=== PATIENT | male | born 1960 | race Caucasian/White ===

== ENCOUNTER 2016-08-09 22:14 | Emergency (ER) | payer OTHER ==
[~2016-08-09] VITALS: Ht 175.3 cm; Wt 70.8 kg
[~2016-08-09 22:14] MED LIST: CARDIZEM CD180 M1 PO; CITALOPRAM HBR40 MG PO; CYCLOBENZAPRINE10 M1 PO; DILTIAZEM 24HR120 MG PO; ELIQUIS5 M1 PO; KEFLEX500 MG PO; LATUDA40 M1 PO; PERCOCET 5-3251 EACH PO; PRAVACHOL40 M1 PO; TYLENOL #31 TAB PO; TYLENOL325 M1 PO; ULTRAM50 M1 PO; VALIUM2 M1 PO
[2016-08-09 22:17] VITALS: BP 128/92
[2016-08-09] MEDS ORDERED: DELTASONE20 MG PO (23:02)
[2016-08-09] MEDS ORDERED: PERCOCET 5-3251 EACH PO (23:02)
--- NOTE | 2016-08-09 23:02 | ED NECK/BACK PAIN COMPLAINT ---
History of Present Illness General Chief Complaint: Low Back Pain/Injury Stated Complaint: " LOEWER BACK PAIN" Source: patient Exam Limitations: no limitations Vital Signs & Intake/Output Vital Signs & Intake/Output Vital Signs Date Time Temp Pulse Resp B/P Pulse O2 O2 Flow FiO2 Ox Delivery Rate 08/09 2216 99.0 85 20 128/92 97 Room Air Allergies Coded Allergies: ibuprofen (CAN'T ANTONIETA R/T BLOOD THINNERS 08/09/16) Reconcile Medications Acetaminophen (Tylenol) 325 MG TABLET 2 TAB PO BID PRN PAIN (Reported) Apixaban (Eliquis) 5 MG TABLET 1 TAB PO BID BLOOD THINNER (Reported) Citalopram Hydrobromide (Citalopram HBr) 40 MG TABLET 1 TAB PO DAILY DEPRESSION (Reported) Cyclobenzaprine HCl 10 MG TABLET 1 TAB PO TID PRN MUSCLE SPASM Cyclobenzaprine HCl 10 MG TABLET 1 TAB PO TID PRN muscle spasm Diltiazem HCl (Cardizem Cd) 180 MG CAP.ER.24H 1 CAP PO DAILY ATRIAL FIBRILLATION Lurasidone HCl (Latuda) 40 MG TABLET 1 TAB PO DAILY MENTAL HEALTH (Reported) Oxycodone HCl/Acetaminophen (Percocet 5-325 MG Tablet) 5 MG-325 MG TABLET 1-2 TAB PO Q6P PRN pain Oxycodone HCl/Acetaminophen (Percocet 5-325 MG Tablet) 1 EACH TABLET 1 TAB PO Q4-6 PRN PAIN Pravastatin Sodium (Pravachol) 40 MG TABLET 1 TAB PO QHS CHOLESTEROL ( Reported) Prednisone (Deltasone) 20 MG TABLET 1 TAB PO BID BACK PAIN Tramadol HCl (Ultram) 50 MG TABLET 1-2 TAB PO TID PRN pain thirty...[id number] Tramadol HCl (Ultram) 50 MG TABLET 1-2 TAB PO TID PRN pain thirty...[id number] Triage Note: TRIAGE: PT TO ER WITH C/C MID/LOW BACK PAIN WHICH IS CHRONIC X YEARS BUT IS WORSE TODAY AFTER CARRYING GROCERIES IN. ALSO STATES HE HAS BEEN HAVING INCONTINENCE OF URINE AND STOOL X COUPLE WEEKS WHICH HE WAS SEEN AT [facility] LAST WEEK. WAS ADVISED TO "GO TO THE EMERGENCY ROOM IF THERE WAS ANY ISSUE". TOOK TYLENOL FOR PAIN TODAY WITH NO RELIEF. Triage Nurses Notes Reviewed? yes Onset: Abrupt Duration: acute on chronic Location: lumbar spine Radiation: upper legs Loss of Consciousness: no loss of consciousness HPI: 56-year-old male comes into emergency room for further evaluation of low back pain. Patient has had chronic low back pain issues for many years. Patient has degenerative disc disease with multiple herniated disks. Patient reports that tonight while lifting the groceries he felt a pop in his lower back. Patient reports she has pain that radiates to his hips bilaterally. Denies any weakness in the lower legs. Sharp. [facility] Patient saw a neurosurgeon who said that he would not operate on him due to the fact he is on blood thinners. (JUAN PABLO ENGLE) Past History Travel History Traveled to [place] past 21 day No Medical History Any Pertinent Medical History? 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 No (JUAN PABLO ENGLE) Review of Systems Review of Systems Constitutional: Reports: no symptoms. Eyes: Reports: no symptoms. Ears, Nose, Throat, Mouth: Reports: no symptoms. Respiratory: Reports: no symptoms. Cardiovascular: Reports: no symptoms. Gastrointestinal/Abdominal: Reports: no symptoms. Musculoskeletal: Reports: see HPI. Skin: Reports: no symptoms. Neurological/Psychological: Reports: no symptoms. All Other Systems: Reviewed and Negative (JUAN PABLO ENGLE) Physical Exam Physical Exam General Appearance: well developed/nourished Head: atraumatic Eyes: Bilateral: normal appearance. Ears, Nose, Throat, Mouth: hearing grossly normal, moist mucous membrane Neck: normal inspection Respiratory: no respiratory distress Cardiovascular: regular rate/rhythm Back: normal inspection Extremities: normal range of motion, laceration left ring finger Motor: Deficit L4 Right: No Deficit L4 Left: No Deficit L5 Right: No Deficit L5 Left: No Deficit S1 Right: No Deficit S1 Right: No Neurologic/Psych: awake, alert, oriented x 3, normal mood/affect Skin: intact, normal color, warm/dry (JUAN PABLO ENGLE) Progress Differential Diagnosis: C spine injury, carotid dissection, cauda equina syn, herniated disc, myofascial strain, sciatica, spinal cord inj, thoracic outlet syn, T/L spine injury, ureterolithiasis Plan of Care: Current Medications Sig/Sly Start time Last Medication Dose Stop Time Status Admin Oxycodone/ 2 TAB ONCE ONE 08/09 2299 UNVr Acetaminophen 08/09 2300 (Percocet) Comments: 08/09/2016 11:14:05 PM Patient clinically looks well. This is a chronic issue for the patient. Patient has no motor deficits. Patient needs follow-up with neurosurgery and another consult from neurosurgery from a different one. Consider pain management. Consider repeat MRI of back. Do not feel x-ray would be helpful in diagnosis at this time. (JUAN PABLO ENGLE) Departure Departure Disposition: HOME OR SELF CARE Condition: Stable Clinical Impression Primary Impression: Acute exacerbation of chronic low back pain Secondary Impressions: Degenerative disc disease Referrals: ML PAINTER,LONA GASPAR (PCP/Family) HEATHER PAINTER,ROC HAYES MD,YENNIFER Pereyra Additional Instructions: Take prednisone and Percocet as prescribed. Follow-up with neurosurgeon as well as pain clinic. Return if any other concerns worsening symptoms. Please go over all results of today's visit with your primary care doctor. Contact your primary care doctor to let them know you were here in the emergency room. There may be nonspecific findings which may not be related to your visit today here in the emergency room but may require further evaluation and chronic monitoring by your primary care doctor. If you had a laceration today the chance of foreign body always remains. You should follow-up with your primary care doctor for recheck in 3-5 days for a wound check. If you had an x-ray done there is a chance that a fracture could have been missed on initial read and you should follow-up with your primary care doctor for repeat x-rays if symptoms persist. If your blood pressure was elevated here in the emergency room please have rechecked by her primary care doctor within the next 48 hours by your primary care doctor. If you were prescribed a narcotic here in the emergency room or any type of controlled substances you're not allowed to drive while taking this medication or operate any type of heavy machinery. Narcotics can make you feel lightheaded dizziness nausea and can cause constipation. You may need to spanish moss picker a stool softener. Thank you for choosing [facility] emergency room. Please return to the emergency room immediately if you have any other concerns worsening of symptoms. Departure Forms: Customer Survey General Discharge Information Prescriptions: Current Visit Scripts Oxycodone HCl/Acetaminophen (Percocet 5-325 MG Tablet) 1-2 TAB PO Q6P PRN pain #20 TAB Prednisone (Deltasone) 1 TAB PO BID #10 MG (JUAN PABLO ENGLE) PA/BENZENE WORKER Co-Sign Statement Statement: ED Attending supervision documentation- [] I saw and evaluated the patient. I have also reviewed all the pertinent lab results and diagnostic results. I agree with the findings and the plan of care as documented in the PA's/BENZENE WORKER's documentation. [X] I have reviewed the ED Record and agree with the PA's/BENZENE WORKER's documentation. [] Additions or exceptions (if any) to the PAs/BENZENE WORKER's note and plan are summarized below: [] (ABDIRASHID PAINTER,NANNETTE)
== END 2016-08-09 23:26 ==
LOC: ERH 22:14
DX: M51.36 Other intervertebral disc degeneration, lumbar region (principal)

== ENCOUNTER 2016-08-29 07:51 | Emergency (ER) | payer OTHER ==
[~2016-08-29] VITALS: Ht 175.3 cm; Wt 68.5 kg
[~2016-08-29 07:51] MED LIST changes: +DELTASONE20 MG PO
--- NOTE | 2016-08-29 08:04 | ED GENERAL ADULT ---
History of Present Illness General Chief Complaint: General Adult Stated Complaint: RECTAL ABSCESS Source: patient Exam Limitations: no limitations Vital Signs & Intake/Output Vital Signs & Intake/Output Vital Signs Date Time Temp Pulse Resp B/P Pulse O2 O2 Flow FiO2 Ox Delivery Rate 08/29 1146 97.7 96 18 121/82 97 Room Air 08/29 0755 100.7 66 20 137/86 98 Room Air Allergies Coded Allergies: ibuprofen (CAN'T ANTONIETA R/T BLOOD THINNERS 08/09/16) Reconcile Medications Acetaminophen (Tylenol) 325 MG TABLET 2 TAB PO BID PRN PAIN (Reported) Apixaban (Eliquis) 5 MG TABLET 1 TAB PO BID BLOOD THINNER (Reported) Ciprofloxacin HCl (Cipro) 500 MG TABLET 1 TAB PO BID ABSCESS Citalopram Hydrobromide (Citalopram HBr) 40 MG TABLET 1 TAB PO DAILY DEPRESSION (Reported) Cyclobenzaprine HCl 10 MG TABLET 1 TAB PO TID PRN MUSCLE SPASM Cyclobenzaprine HCl 10 MG TABLET 1 TAB PO TID PRN muscle spasm Diltiazem HCl (Cardizem Cd) 180 MG CAP.ER.24H 1 CAP PO DAILY ATRIAL FIBRILLATION Lurasidone HCl (Latuda) 40 MG TABLET 1 TAB PO DAILY MENTAL HEALTH (Reported) Metronidazole (Flagyl) 500 MG TABLET 1 TAB PO BID ABSCESS Oxycodone HCl/Acetaminophen (Percocet 5-325 MG Tablet) 5 MG-325 MG TABLET 1-2 TAB PO Q6P PRN pain Oxycodone HCl/Acetaminophen (Percocet 5-325 MG Tablet) 1 EACH TABLET 1 TAB PO Q4-6 PRN PAIN Pravastatin Sodium (Pravachol) 40 MG TABLET 1 TAB PO QHS CHOLESTEROL ( Reported) Prednisone (Deltasone) 20 MG TABLET 1 TAB PO BID BACK PAIN Tramadol HCl (Ultram) 50 MG TABLET 1-2 TAB PO TID PRN pain thirty...[id number] Tramadol HCl (Ultram) 50 MG TABLET 1-2 TAB PO TID PRN pain thirty...[id number] Tramadol HCl 50 MG TABLET 1 TAB PO BIDP PRN PAIN Triage Note: PT STATES HE WAS CONSTIPATED AND HAD A BM THAT WAS VERY HARD 2 WEEKS AGO. STATES HE THINKS HE HAS A RECTAL ABSCESS. STATES HX OF RECTAL FISSURE IN THE PAST Triage Nurses Notes Reviewed? yes HPI: This patient is a 56-year-old male with a past medical history including atrial fibrillation, pilonidal cyst, and anal fissures who presented to the emergency department today for evaluation of possible rectal abscess. The patient reported that approximately 2 weeks ago he had a very large, hard bowel movement which caused him to strain. He reported that he felt like, "ripped," his skin and possibly gave himself another anal fissure. Approximately 2 days ago he started having pain near his rectum and started feeling a lump. The patient reported that over the last day has been increasingly more difficult for him to sit down and the pain gets up to a 10 out of 10. He reported the pain has been constant and nonradiating. He denied any blood in his stool. He reported that he chronically has alternating diarrhea and constipation because of the medications he is on. The patient denied any fevers, chills, chest pain, difficulty breathing, abdominal pain, nausea, or vomiting. (ELVER VALLADARES PA-C) Past History Travel History Traveled to [place] past 21 day No Medical History Any Pertinent Medical History? 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 No (ELVER VALLADARES PA-C) Review of Systems Review of Systems Constitutional: Reports: no symptoms. EENTM: Reports: no symptoms. Respiratory: Reports: no symptoms. Cardiovascular: Reports: no symptoms. GI: Reports: see HPI. Genitourinary: Reports: no symptoms. Musculoskeletal: Reports: no symptoms. Skin: Reports: see HPI. Neurological/Psychological: Reports: no symptoms. All Other Systems: Reviewed and Negative (BLAINE ALBERTO,ELVER) Physical Exam Physical Exam General Appearance: well developed/nourished, no apparent distress, alert, awake Comments: Well-developed well-nourished person in no acute distress HEENT: Normal EENT exam, head normocephalic, moist mucous membranes Pupils equally round and reactive to light. Neck: Supple Back: Normal inspection Respiratory: No respiratory distress. Speaking in full sentences Abdomen: Soft, nontender and nondistended Rectal: No evidence of anal fissures. At the 6 o'clock position, there is a mildly erythematous, indurated, raised area approximately 1 cm in greatest diameter which is exquisitely tender to palpation. No areas of fluctuance. Extremity: Normal and equal pulses. Neuro: Alert oriented x3, cranial nerves II through XII grossly intact. Skin: No appreciable rash on exposed skin, skin is warm and dry. Psych: Mood and affect is normal Core Measures ACS in differential dx? No CVA/TIA Diagnosis: No Severe Sepsis Present: No Septic Shock Present: No (ELVER VALLADARES PA-C) Progress Differential Diagnoses I considered the following diagnoses in my evaluation of the patient: [Pilonidal cyst, perirectal abscess, anal fissure, constipation] Plan of Care: Orders Procedure Date/time Status COMPREHENSIVE METABOLIC PANEL 08/29 823 Complete CBC WITHOUT DIFFERENTIAL 08/29 823 Complete Laboratory Tests 08/29/16 0830: Anion Gap 9, Estimated GFR > 60, BUN/Creatinine Ratio 17.3, Glucose 98, Calcium 8.9, Total Bilirubin 0.6, AST 22, ALT 24, Alkaline Phosphatase 58, Total Protein 6.4, Albumin 3.6, Globulin 2.8, Albumin/Globulin Ratio 1.3, CBC w Diff NO MAN DIFF REQ, RBC 4.67 L, MCV 92.1, MCH 31.2 H, RDW 14.0, MPV 10.5 H, Gran % 75.5 H, Lymphocytes % 16.3 L, Monocytes % 6.8, Eosinophils % 0.7, Basophils % 0.7, Absolute Granulocytes 8.8 H, Absolute Lymphocytes 1.9, Absolute Monocytes 0.8 H, Absolute Eosinophils 0.1, Absolute Basophils 0.1, PUBS MCHC 33.8 Diagnostic Imaging: Viewed by Me: CT Scan. Discussed w/RAD: CT Scan. Radiology Impression: PATIENT: SHAYNE PORTER PRESENT AGE: 56 PATIENT ACCOUNT NO: [id number] : 58 LOCATION: [facility] ORDERING PHYSICIAN: ELVER VALLADARES PA-C SERVICE DATE: 08/29/16 EXAM TYPE: CAT - CT PELVIS W IV CONTRAST EXAMINATION: CT PELVIS WITH IV CONTRAST CLINICAL INFORMATION: Pain. Lump. Evaluate for perirectal abscess. COMPARISON: CT scan of the abdomen and pelvis dated 12/21/2015. TECHNIQUE: Helical scanning was performed with submillimeter collimation through the pelvis with 93 mL of Optiray 320 intravenous contrast. Sagittal and coronal multiplanar 2-D reconstructions were obtained. DLP: 195.81 mGy-cm FINDINGS: BOWEL LOOPS: There is subtle thickening of the anorectal junction with mild surrounding inflammatory stranding in the perianal fat. No discrete anal/rectal mass or perianal fistula or abscess is seen. There is moderate sigmoid colonic diverticulosis with no evidence of acute diverticulitis. Included small bowel loops are grossly unremarkable. Terminal ileum is normal. Appendix is not visualized. ABDOMINAL WALL: There are mich seen in the groins bilaterally, consistent with prior hernia repair. No evidence of recurrent hernia formation seen. BLADDER: Well-distended and unremarkable. PELVIC ORGANS: Unremarkable. LYMPHOVASCULAR STRUCTURES: Severe atherosclerotic calcification of the aorta and bifurcation. No significant pelvic adenopathy or free fluid. BONES: Mild degenerative changes are seen in both hip joints and in the lower lumbar spine. IMPRESSION: 1. Mild thickening of the anal rectal junction with mild perianal inflammatory fat stranding is seen. This may be on an infectious or inflammatory basis. Close clinical correlation is requested. 2. No evidence of perianal fistula or abscess. 3. Moderate sigmoid colonic diverticulosis with no evidence of acute diverticulitis. 4. Evidence of prior bilateral inguinal hernia repair. 5. Severe atherosclerotic vascular calcifications. DICTATED BY: KATIE CHATTERJEE MD DATE/TIME DICTATED:08/29/161122 WEIGHT TRAINER:ROLDAN DATE/TIME TRANSCRIBED:08/29/161122 CONFIDENTIAL, DO NOT COPY WITHOUT APPROPRIATE AUTHORIZATION. <Electronically signed in Other Vendor System> SIGNED BY: KATIE CHATTERJEE MD 08/29/16 1150 Initial ED EKG: none Comments: 08/29/2016 9:54:30 AM: The patient reported that time and all significantly helped his pain. He is currently resting comfortably on the stretcher. Awaiting CT scan. (ELVER VALLADARES PA-C) Departure Departure Disposition: HOME OR SELF CARE Condition: Stable Clinical Impression Primary Impression: Anorectal pain Referrals: JAYE MICHAUD DO,ELIO BULL MD,LONA GASPAR (PCP/Family) Additional Instructions: Please take antibiotics as prescribed and for their full duration. Take medication for pain as prescribed. Please call the colorectal surgeon his information has been provided to you in this packet for further evaluation and management. Return to the emergency department for any worsening symptoms or concerns. Departure Forms: Customer Survey General Discharge Information Prescriptions: Current Visit Scripts Ciprofloxacin HCl (Cipro) 1 TAB PO BID #14 TAB Metronidazole (Flagyl) 1 TAB PO BID #14 TAB Tramadol HCl 1 TAB PO BIDP PRN PAIN #10 TAB (ELVER VALLADARES PA-C) PA/LARRIMAN Co-Sign Statement Statement: ED Attending supervision documentation- [] I saw and evaluated the patient. I have also reviewed all the pertinent lab results and diagnostic results. I agree with the findings and the plan of care as documented in the PA's/LARRIMAN's documentation. [X] I have reviewed the ED Record and agree with the PA's/LARRIMAN's documentation. [] Additions or exceptions (if any) to the PAs/LARRIMAN's note and plan are summarized below: [] (ABDIRASHID PAINTER,NANNETTE) Critical Care Note Critical Care Note Critical Care Time: non-applicable (ELVER VALLADARES PA-C)
[2016-08-29 08:46] LABS: ABSOLUTE BASOPHIL COUNT 0.1 /CUMM (0.0-0.2); ABSOLUTE EOSINOPHIL COUNT 0.1 /CUMM (0.0-0.7); ABSOLUTE GRANULOCYTE CT 8.8 /CUMM (1.4-6.5); ABSOLUTE LYMPH COUNT 1.9 /CUMM (1.2-3.4); ABSOLUTE MONOCYTE COUNT 0.8 /CUMM (0.10-0.60); BASOPHIL % 0.7 % (0.0-2.0); EOSINOPHIL % 0.7 % (0-5); MEAN CORPUSCULAR HGB 31.2 PG (27.0-31.0); MEAN CORPUSCULAR HGB CONC 33.8 G/DL (33.0-37.0); MEAN CORPUSCULAR VOLUME 92.1 FL (80.0-94.0); MEAN PLATELET VOLUME 10.5 FL (7.4-10.4); RED BLOOD CELL CT 4.67 /CUMM (4.70-6.10)
[2016-08-29 09:05] LABS: GRANULOCYTE % 75.5 % (42.2-75.2); PLATELET COUNT 156 /CUMM (130-400); WHITE BLOOD CELL COUNT 11.8 /CUMM (4.8-10.8)
[2016-08-29 11:46] VITALS: BP 121/82
--- NOTE | 2016-08-29 11:50 | CT SCAN REPORT ---
EXAMINATION: CT PELVIS WITH IV CONTRAST CLINICAL INFORMATION: Pain. Lump. Evaluate for perirectal abscess. COMPARISON: CT scan of the abdomen and pelvis dated 12/21/2015. TECHNIQUE: Helical scanning was performed with submillimeter collimation through the pelvis with 93 mL of Optiray 320 intravenous contrast. Sagittal and coronal multiplanar 2-D reconstructions were obtained. DLP: 195.81 mGy-cm FINDINGS: BOWEL LOOPS: There is subtle thickening of the anorectal junction with mild surrounding inflammatory stranding in the perianal fat. No discrete anal/rectal mass or perianal fistula or abscess is seen. There is moderate sigmoid colonic diverticulosis with no evidence of acute diverticulitis. Included small bowel loops are grossly unremarkable. Terminal ileum is normal. Appendix is not visualized. ABDOMINAL WALL: There are mich seen in the groins bilaterally, consistent with prior hernia repair. No evidence of recurrent hernia formation seen. BLADDER: Well-distended and unremarkable. PELVIC ORGANS: Unremarkable. LYMPHOVASCULAR STRUCTURES: Severe atherosclerotic calcification of the aorta and bifurcation. No significant pelvic adenopathy or free fluid. BONES: Mild degenerative changes are seen in both hip joints and in the lower lumbar spine. IMPRESSION: 1. Mild thickening of the anal rectal junction with mild perianal inflammatory fat stranding is seen. This may be on an infectious or inflammatory basis. Close clinical correlation is requested. 2. No evidence of perianal fistula or abscess. 3. Moderate sigmoid colonic diverticulosis with no evidence of acute diverticulitis. 4. Evidence of prior bilateral inguinal hernia repair. 5. Severe atherosclerotic vascular calcifications.
[2016-08-29] MEDS ORDERED: CIPRO500 M1 PO (12:09)
[2016-08-29] MEDS ORDERED: FLAGYL500 MG PO (12:09)
[2016-08-29] MEDS ORDERED: TRAMADOL HCL50 M1 PO (12:09)
== END 2016-08-29 12:21 ==
LOC: ERH 07:51
PROVIDERS: Physician Assistant
DX: K62.89 Other specified diseases of anus and rectum (principal)

== ENCOUNTER 2016-09-26 11:30 | Emergency (ER) | payer OTHER ==
[~2016-09-26] VITALS: Ht 175.3 cm; Wt 68.9 kg
[~2016-09-26 11:30] MED LIST changes: +CIPRO500 M1 PO; +FLAGYL500 MG PO; +TRAMADOL HCL50 M1 PO
--- NOTE | 2016-09-26 12:58 | ED GI/GU/ABDOMINAL COMPLAINT ---
History of Present Illness General Chief Complaint: Skin Rash/ Abcess Stated Complaint: ? ABCESS. Source: patient, Exam Limitations: no limitations Vital Signs & Intake/Output Vital Signs & Intake/Output Vital Signs Date Time Temp Pulse Resp B/P Pulse O2 O2 Flow FiO2 Ox Delivery Rate 09/26 1359 97.0 88 18 120/64 98 Room Air 09/26 1252 99 Room Air 09/26 1139 96.6 97 18 118/57 97 Room Air Allergies Coded Allergies: ibuprofen (CAN'T ANTONIETA R/T BLOOD THINNERS 08/09/16) Reconcile Medications Acetaminophen (Tylenol) 325 MG TABLET 2 TAB PO BID PRN PAIN (Reported) Apixaban (Eliquis) 5 MG TABLET 1 TAB PO BID BLOOD THINNER (Reported) Citalopram Hydrobromide (Citalopram HBr) 40 MG TABLET 1 TAB PO DAILY DEPRESSION (Reported) Cyclobenzaprine HCl 10 MG TABLET 1 TAB PO TID PRN muscle spasm Diltiazem HCl (Cardizem Cd) 180 MG CAP.ER.24H 1 CAP PO DAILY ATRIAL FIBRILLATION Lurasidone HCl (Latuda) 40 MG TABLET 1 TAB PO DAILY MENTAL HEALTH (Reported) Oxycodone HCl/Acetaminophen (Percocet 5-325 MG Tablet) 5 MG-325 MG TABLET 1-2 TAB PO Q6P PRN pain Pravastatin Sodium (Pravachol) 40 MG TABLET 1 TAB PO QHS CHOLESTEROL ( Reported) Tramadol HCl 50 MG TABLET 1 TAB PO BIDP PRN PAIN Triage Note: ABSCESS CHECK S/P SURGERY Aug. Triage Nurses Notes Reviewed? yes HPI: Patient presents for evaluation of a lump in the perirectal area. Patient states about 3 weeks ago he had what sounds like a perirectal abscess incised and drained at the [facility]. Initially this was performed in the emergency department but then patient was taken to the OR for more extensive drainage procedure. He has subsequently developed small pinholes that drain fluid from time to time. The lump apparently began over the past few days and is constant. Is described as mild to moderate in intensity and becomes painful when sitting. Past History Travel History Traveled to [place] past 21 day No Medical History Any Pertinent Medical History? 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 No Review of Systems Review of Systems Constitutional: Reports: no symptoms. EENTM: Reports: no symptoms. Respiratory: Reports: no symptoms. Cardiovascular: Reports: no symptoms. GI: Reports: no symptoms. Genitourinary: Reports: no symptoms. Musculoskeletal: Reports: no symptoms. Skin: Reports: see HPI. Neurological/Psychological: Reports: no symptoms. Hematologic/Endocrine: Reports: no symptoms. Immunologic/Allergic: Reports: no symptoms. All Other Systems: Reviewed and Negative Physical Exam Physical Exam Gastrointestinal: SEE BELOW Comments: Gen.: Well-nourished, well-developed, no acute respiratory distress. Head: Normocephalic, atraumatic. Eyes: Normal inspection bilaterally Ears: Normal inspection bilaterally Nose: Normal inspection Throat/mouth : Moist mucosa Neck: Supple, full range of motion, no goiter Heart: Regular rate and rhythm, no murmurs rubs or gallops Lungs: Clear to auscultation bilaterally with normal air entry Chest: Nontender Back: Normal range of motion Abdomen: Soft, nontender, nondistended, normal bowel sounds Extremities: Normal range of motion grossly, equal radial pulses, no cyanosis clubbing or edema Neurologic: Cranial nerves grossly intact, speech is clear Skin: warm and dry Psychiatric: Calm, cooperative, no apparent delusions or hallucinations Rectal: Patient has 2 sinus or fistulous tracts in the perirectal region with an acorn sized firm lump, there is no ecchymoses erythema or warmth. There is a mild serous discharge from one of the tracts. Core Measures ACS in differential dx? No Severe Sepsis Present: No Septic Shock Present: No Progress Differential Diagnosis: CELLULITIS, ABSCESS, SCAR TISSUE, SINUS OR FISTULOUS TRACTS Plan of Care: Orders Procedure Date/time Status US-SUPERFICIAL IMAGING EXTREMI 09/26 1257 Active Diagnostic Imaging: Discussed w/RAD: Ultrasound. Radiology Impression: PATIENT: PATRIC PORTER PRESENT AGE: 56 PATIENT ACCOUNT NO: [id number] : 58 LOCATION: [facility] [place] ORDERING PHYSICIAN: GIANFRANCO MCKNINON MD SERVICE DATE: 09/26/16-1257 EXAM TYPE: US - US-SUPERFICIAL IMAGING EXTREMI EXAMINATION: US SUPERFICIAL IMAGING, EXTREMITY CLINICAL INFORMATION: 56-year-old male with perirectal lump. Evaluate for abscess. COMPARISON: CT of the pelvis from 08/29/2016 TECHNIQUE: Real-time sonographic imaging of the superficial tissues of the perirectal region was performed by the special procedure technologist using a linear 12 MHz transducer. Grayscale and color Doppler images were acquired. FINDINGS: There is a subcutaneous tissue edema within the examined perirectal area. The transversely acquired images more clearly show that there is no focal measurable or drainable collection in this area of inflammation. Color Doppler images show mild hypervascularity of the swollen soft tissues. IMPRESSION: There is a region of subcutaneous tissue edema and inflammation within the perirectal area. However, there is no focal, measurable abscess collection in this area. DICTATED BY: ORCKY LEAVITT MD DATE/TIME DICTATED:09/26/161352 DESIGN PROJECT MANAGER:ROLDAN DATE/TIME TRANSCRIBED:09/26/161352 CONFIDENTIAL, DO NOT COPY WITHOUT APPROPRIATE AUTHORIZATION. <Electronically signed in Other Vendor System> SIGNED BY: ROCKY LEAVITT MD 09/26/16 1400 Initial ED EKG: none Comments: 09/26/2016 2:35:10 PM I have updated Patric test results. Departure Departure Disposition: HOME OR SELF CARE Condition: Stable Clinical Impression Primary Impression: Cutaneous fistula Referrals: ML PAINTER,LONA GASPAR (PCP/Family) Additional Instructions: Your ultrasound shows that there is no drainable fluid collection/abscess. Bulky dressings as needed. Antibiotics as previously prescribed. Follow-up with your colorectal surgeon on Thursday as scheduled. Return if any concerns or sudden worsening. Departure Forms: Customer Survey General Discharge Information
[2016-09-26 13:59] VITALS: BP 120/64
--- NOTE | 2016-09-26 14:00 | ULTRASOUND REPORT ---
EXAMINATION: US SUPERFICIAL IMAGING, EXTREMITY CLINICAL INFORMATION: 56-year-old male with perirectal lump. Evaluate for abscess. COMPARISON: CT of the pelvis from 08/29/2016 TECHNIQUE: Real-time sonographic imaging of the superficial tissues of the perirectal region was performed by the textile technologist using a linear 12 MHz transducer. Grayscale and color Doppler images were acquired. FINDINGS: There is a subcutaneous tissue edema within the examined perirectal area. The transversely acquired images more clearly show that there is no focal measurable or drainable collection in this area of inflammation. Color Doppler images show mild hypervascularity of the swollen soft tissues. IMPRESSION: There is a region of subcutaneous tissue edema and inflammation within the perirectal area. However, there is no focal, measurable abscess collection in this area.
== END 2016-09-26 15:05 ==
LOC: ERH 11:30
DX: L98.8 Other specified disorders of the skin and subcutaneous tissue (principal)
CPT/HCPCS: 76881

== ENCOUNTER 2016-11-11 13:42 | Emergency (ER) | payer OTHER ==
[~2016-11-11] VITALS: Ht 175.3 cm; Wt 68.9 kg
[2016-11-11 13:46] VITALS: BP 125/78
[2016-11-11] MEDS ORDERED: TRAMADOL HCL50 M1 PO (14:27)
[2016-11-11] MEDS ORDERED: VIBRAMYCIN100 MG PO (14:27)
--- NOTE | 2016-11-11 14:27 | ED SKIN/ALLERGY COMPLAINT ---
History of Present Illness General Chief Complaint: General Adult Stated Complaint: PT HAS A ABCESS THAT KEEP COMING BACK Source: patient Exam Limitations: no limitations Allergies Coded Allergies: ibuprofen (CAN'T ANTONIETA R/T BLOOD THINNERS 08/09/16) Triage Note: PT STATES HE HAS AN ABCESS ON HIS BUTTOCKS. PT STATES HE HAD THEM SUGRICALY REMOVED AND THEY HEALED HOWEVER NOW IT IS HAPPENING AGAIN. PT STATES IT WASN'T HEALED ON THE INSIDE SO THE FLUID WAS BUILDING UP. Triage Nurses Notes Reviewed? yes HPI: This patient is a 56-year-old male with a past medical history including recurrent abscesses who presents to the emergency department today for evaluation of abscess to the gluteal region. He reported that this is likely going on for approximately 3 months. He reported that he had a prior abscess incised and drained at the [place]. He reported that there was a previous contrast enhanced CT done here in the emergency department that showed a tract, likely pilonidal cyst. The patient was given the name of a colorectal surgeon, but never followed up. He reported that approximately 3 days ago he started having pain in the same area again. He noticed 2 bumps. He reported that the pain gets up to a 10 out of 10 and is difficult to sit. He reported that he ran out of antibiotics and thinks he needs more. He denied any fevers, chills, abdominal pain, or difficulty breathing. (BLAINE ALBERTO,ELVER) Vital Signs & Intake/Output Vital Signs & Intake/Output ED Intake and Output / 0000 05 1200 Intake Total 0 Output Total Balance 0 Intake, Oral 0 Patient 152 lb Weight Weight Reported by Patient Measurement Method Reconcile Medications Acetaminophen (Tylenol) 325 MG TABLET 2 TAB PO BID PRN PAIN (Reported) Apixaban (Eliquis) 5 MG TABLET 1 TAB PO BID BLOOD THINNER (Reported) Citalopram Hydrobromide (Citalopram HBr) 40 MG TABLET 1 TAB PO DAILY DEPRESSION (Reported) Cyclobenzaprine HCl 10 MG TABLET 1 TAB PO TID PRN muscle spasm Diltiazem HCl (Cardizem Cd) 180 MG CAP.ER.24H 1 CAP PO DAILY ATRIAL FIBRILLATION Doxycycline Hyclate (Vibramycin) 100 MG CAPSULE 1 CAP PO BID ABSCESS Lurasidone HCl (Latuda) 40 MG TABLET 1 TAB PO DAILY MENTAL HEALTH (Reported) Oxycodone HCl/Acetaminophen (Percocet 5-325 MG Tablet) 5 MG-325 MG TABLET 1-2 TAB PO Q6P PRN pain Pravastatin Sodium (Pravachol) 40 MG TABLET 1 TAB PO QHS CHOLESTEROL ( Reported) Tramadol HCl 50 MG TABLET 1 TAB PO BIDP PRN PAIN Tramadol HCl 50 MG TABLET 1 TAB PO BIDP PRN PAIN (KORY PAINTER,PETRONA) Past History Travel History Traveled to [place] past 21 day No Medical History Any Pertinent Medical History? 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 No (ELVER VALLADARES PA-C) Review of Systems Review of Systems Constitutional: Reports: no symptoms. EENTM: Reports: no symptoms. Respiratory: Reports: no symptoms. Cardiovascular: Reports: no symptoms. GI: Reports: no symptoms. Genitourinary: Reports: no symptoms. Musculoskeletal: Reports: no symptoms, see HPI, back pain, gout, joint pain, joint swelling, muscle pain, muscle stiffness, neck pain. Skin: Reports: see HPI. Neurological/Psychological: Reports: no symptoms. All Other Systems: Reviewed and Negative (ELVER VALLADARES PA-C) Physical Exam Physical Exam General Appearance: well developed/nourished, no apparent distress, alert, awake Comments: Well-developed well-nourished person in no acute distress HEENT: Head normocephalic/atraumatic Neck: Supple, no lymphadenopathy Back: Normal gait Respiratory: No respiratory distress. Speaking in full sentences Extremities: No edema, full range of motion Neuro: Alert and oriented x3 Psych: Mood affect normal, normal memory normal judgment. Skin: Warm and dry, no rash on exposed skin. 2, approximately 1 cm in greatest diameter, indurated, erythematous raised lesions to the gluteal cleft which are tender to palpation with no fluctuance or surrounding erythema or edema. (ELVER VALLADARES PA-C) Progress Differential Diagnosis: abscess/cellulitis, PILONIDAL CYST, PERIRECTAL ABSCESS Plan of Care: This patient is a 56-year-old male who presented for evaluation of abscess formation to the gluteal cleft. 2, 1 cm abscesses noted which are indurated with no appreciable drainable collection at this time. This patient is afebrile. He is stable for outpatient antibiotic management and colorectal follow-up. (ELVER VALLADARES PA-C) Departure Departure Disposition: HOME OR SELF CARE Condition: Stable Clinical Impression Primary Impression: Abscess Referrals: JAYE MICHAUD DO,ELIO BULL MD,LONA GASPAR (PCP/Family) Additional Instructions: Please take the antibiotic as prescribed and for the full duration. Follow-up with the colorectal surgeon whose information has been provided to you in this packet. Return for any worsening symptoms or concerns. Please follow-up with your primary care physician. Departure Forms: Customer Survey General Discharge Information Prescriptions: Current Visit Scripts Doxycycline Hyclate (Vibramycin) 1 CAP PO BID #20 CAP Tramadol HCl 1 TAB PO BIDP PRN PAIN #8 TAB (ELVER VALLADARES PA-C) PA/AIR INTERCEPT CONTROLLER Co-Sign Statement Statement: ED Attending supervision documentation- [] I saw and evaluated the patient. I have also reviewed all the pertinent lab results and diagnostic results. I agree with the findings and the plan of care as documented in the PA's/AIR INTERCEPT CONTROLLER's documentation. x I have reviewed the ED Record and agree with the PA's/AIR INTERCEPT CONTROLLER's documentation. [] Additions or exceptions (if any) to the PAs/AIR INTERCEPT CONTROLLER's note and plan are summarized below: [] (KORY PAINTER,PETRONA)
== END 2016-11-11 14:41 ==
LOC: ERH 13:42
DX: L02.31 Cutaneous abscess of buttock (principal)

== ENCOUNTER 2016-11-14 18:16 | Emergency (ER) | payer OTHER ==
[~2016-11-14] VITALS: Ht 175.3 cm; Wt 68.9 kg
[~2016-11-14 18:16] MED LIST changes: +VIBRAMYCIN100 MG PO
[2016-11-14 18:21] VITALS: BP 128/87
[2016-11-14] MEDS ORDERED: DIVALPROEX SOD500 M3 PO (19:27)
[2016-11-14] MEDS ORDERED: GABAPENTIN400 M2 PO (19:29)
[2016-11-14] MEDS ORDERED: PERCOCET 5-3251 EACH PO (19:54)
[2016-11-14] MEDS ORDERED: KEFLEX500 M1 PO (19:54)
[2016-11-14] MEDS ORDERED: BACTRIM DS TAB1 EACH PO (19:54)
--- NOTE | 2016-11-14 19:54 | ED SKIN/ALLERGY COMPLAINT ---
History of Present Illness General Chief Complaint: Skin Rash/ Abcess Stated Complaint: ABCESS ON BUTTOCKS Source: patient Exam Limitations: no limitations Allergies Coded Allergies: tramadol (GAS, DIARRHEA, ABD PAIN, CLAMMY 11/14/16) ibuprofen (CAN'T ANTONIETA R/T BLOOD THINNERS 08/09/16) Reconcile Medications Acetaminophen (Tylenol) 325 MG TABLET 2 TAB PO BID PRN PAIN (Reported) Apixaban (Eliquis) 5 MG TABLET 1 TAB PO BID BLOOD THINNER (Reported) Cephalexin (Keflex) 500 MG CAPSULE 1 CAP PO TID abscess Cyclobenzaprine HCl 10 MG TABLET 1 TAB PO TID PRN muscle spasm Diltiazem HCl (Cardizem Cd) 180 MG CAP.ER.24H 1 CAP PO DAILY ATRIAL FIBRILLATION Divalproex Sodium (Divalproex Sodium ER) 500 MG TAB.ER.24H 3 TAB PO QPM MENTAL HEALTH (Reported) Doxycycline Hyclate (Vibramycin) 100 MG CAPSULE 1 CAP PO BID ABSCESS Gabapentin (Unknown Strength) CAPSULE (Unknown Dose) PO TID NERVE PAIN ( Reported) Oxycodone HCl/Acetaminophen (Percocet 5-325 MG Tablet) 5 MG-325 MG TABLET 1 TAB PO BID PRN pain Pravastatin Sodium (Pravachol) 40 MG TABLET 1 TAB PO QHS CHOLESTEROL ( Reported) Sulfamethoxazole/Trimethoprim (Bactrim Ds Tablet) 800 MG-160 MG TABLET 1 TAB PO BID abscess Tramadol HCl 50 MG TABLET 1 TAB PO BIDP PRN PAIN Triage Note: PT TO ED REQUESTING NEW ABX AND NEW PAIN MED. PT SEEN IN ED ON THURSDAY WITH ABSCESS TO BUTTOCKS. PT WAS GIVEN TRAMADOL AND PAIN MEDS. STATES THE ABX AND PAIN MEDS AREN'T WORKING. Triage Nurses Notes Reviewed? yes HPI: This patient is a 56-year-old male who presented to the emergency department today for evaluation of gluteal cleft abscess, seen here for similar multiple times. The patient reported that the abscess does seem to be getting better with the previously prescribed doxycycline, but reported that he thinks he needs another course. He reported that it is still painful, pain gets up to an 8 out of 10 and is worse with sitting. Pain is throbbing and nonradiating. He denied any fevers, chills, abdominal pain. The patient also reported that the tramadol he was given made him very nauseous with vomiting and made him feel angry. (ELVER VALLADARES PA-C) Vital Signs & Intake/Output Vital Signs & Intake/Output Vital Signs Date Time Temp Pulse Resp B/P B/P Pulse O2 O2 Flow FiO2 Mean Ox Delivery Rate 11/14 1821 98.8 97 20 128/87 99 Room Air ED Intake and Output 11/15 0000 05 1200 Intake Total Output Total Balance Patient 152 lb Weight Weight Reported by Patient Measurement Method Past History Travel History Traveled to [facility] past 21 day No Medical History Any Pertinent Medical History? 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 No (ELVER VALLADARES PA-C) Review of Systems Review of Systems Constitutional: Reports: no symptoms. EENTM: Reports: no symptoms. Respiratory: Reports: no symptoms. Cardiovascular: Reports: no symptoms. GI: Reports: see HPI. Genitourinary: Reports: no symptoms. Musculoskeletal: Reports: no symptoms. Skin: Reports: see HPI. Neurological/Psychological: Reports: see HPI. All Other Systems: Reviewed and Negative (ELVER VALLADARES PA-C) Physical Exam Physical Exam General Appearance: well developed/nourished, no apparent distress, alert, awake Comments: Well-developed well-nourished person in no acute distress HEENT: Normal EENT exam, moist mucous membranes Pupils equally round and reactive to light. Neck: Supple, no lymphadenopathy Back: Normal gait Respiratory: No respiratory distress. Speaking in full sentences Extremity: Normal equal pulses Neuro: Alert oriented x3, motor sensory normal, cranial nerves II through XII grossly intact. Skin: No appreciable rash on exposed skin, skin is warm and dry. Area of induration with mild amount of erythema to the left inner buttock region with no drainage, no surrounding edema, and no fluctuance Psych: Mood and affect is normal, memory and judgment is normal. (ELVER VALLADARES PA-C) Progress Differential Diagnosis: abscess/cellulitis, drug reaction, urticaria Plan of Care: This patient is a 56-year-old male who presented to the emergency department today requesting new antibiotics any different pain medication for his recurrent gluteal abscess. Abscess is much improved from prior visit when I saw this patient. Patient is afebrile. No areas to drain at this time; indurated with no fluctuance. This patient is going to be set up with a new primary care physician and he was again given a colorectal surgeon to follow up with. (ELVER VALLADARES PA-C) Departure Departure Disposition: HOME OR SELF CARE Condition: Stable Clinical Impression Primary Impression: Abscess Referrals: JAYE MICHAUD DO,ELIO BULL MD,LONA GASPAR (PCP/Family) TIMOTHY PAINTER,Nitin SULTANA Additional Instructions: Please take antibiotic as prescribed and for the full duration. Take medication for pain as prescribed. You may follow up with Dr. melgar, colorectal surgeon, regarding your recurrent abscesses. Return for any worsening symptoms or concerns. Departure Forms: Customer Survey General Discharge Information Prescriptions: Current Visit Scripts Oxycodone HCl/Acetaminophen (Percocet 5-325 MG Tablet) 1 TAB PO BID PRN pain #10 TAB Sulfamethoxazole/Trimethoprim (Bactrim Ds Tablet) 1 TAB PO BID #20 TAB Cephalexin (Keflex) 1 CAP PO TID #30 CAP (ELVER VALLADARES PA-C) PA/CORPORATE GIVING MANAGER Co-Sign Statement Statement: ED Attending supervision documentation- [] I saw and evaluated the patient. I have also reviewed all the pertinent lab results and diagnostic results. I agree with the findings and the plan of care as documented in the PA's/CORPORATE GIVING MANAGER's documentation. [x] I have reviewed the ED Record and agree with the PA's/CORPORATE GIVING MANAGER's documentation. [] Additions or exceptions (if any) to the PAs/CORPORATE GIVING MANAGER's note and plan are summarized below: [] (ROSE PAINTER,KRISTAL Santos)
== END 2016-11-14 20:05 ==
LOC: ERH 18:16
DX: L02.31 Cutaneous abscess of buttock (principal)

== ENCOUNTER 2016-12-02 18:06 | Emergency (ER) | payer OTHER ==
[~2016-12-02] VITALS: Ht 175.3 cm; Wt 67.1 kg
[~2016-12-02 18:06] MED LIST changes: +BACTRIM DS TAB1 EACH PO; +DIVALPROEX SOD500 M3 PO; +GABAPENTIN400 M2 PO; +KEFLEX500 M1 PO
--- NOTE | 2016-12-02 18:29 | ED NECK/BACK PAIN COMPLAINT ---
History of Present Illness General Chief Complaint: Neck/Upper Back Pain/Injury Stated Complaint: NECK PAIN S/P TURNING HEAD Source: patient Exam Limitations: no limitations Vital Signs & Intake/Output Vital Signs & Intake/Output Vital Signs Date Time Temp Pulse Resp B/P B/P Pulse O2 O2 Flow FiO2 Mean Ox Delivery Rate 12/02 1835 97.2 74 18 118/64 98 Room Air Room Air ED Intake and Output 12/03 0000 12/02 1200 Intake Total 0 Output Total Balance 0 Intake, Oral 0 Patient 148 lb Weight Allergies Coded Allergies: tramadol (GAS, DIARRHEA, ABD PAIN, CLAMMY 12/02/16) ibuprofen (CAN'T ANTONIETA R/T BLOOD THINNERS 12/02/16) Triage Note: PT BROUGHT DIRECTLY TO [facility], PT HAS BILATERAL NECK PAIN AFTER LOOKING UP QUICKLY. PT STATES IT FEELS LIKE SPASMS. PT ALSO STATES A GARAGE DOOR HIT HIS HEAD LAST THURSDAY AND HE HAD A CT ONLY OF HIS HEAD Triage Nurses Notes Reviewed? yes Onset: Gradual Duration: worse persistent since (1 DAY) Timing: recent history Quality/Severity: moderate Location: C-spine, paraspinous muscles Radiation: none Context: turning/bending HPI: Patient is a 56-year-old male with history of degenerative disc disease in his neck presenting to the emergency department with chief complaint of bilateral neck pain worse since this afternoon after turning quickly. Patient also reports that he had a garage door fall on his head last week. He was [facility] evaluated [facility] the [facility] where they did a CAT scan of his head only. Everything was okay with the CAT scan, they did not do a CAT scan of his neck. Pain was slightly achy but became significantly worse today. No radiation of the pain. Patient describes it as spasming. No numbness or tingling. Denies any nausea vomiting fevers or chills chest pain or shortness of breath. Eyes taking anything at home to help with symptoms. (LARS VEGA,MACHELLE) Reconcile Medications Acetaminophen (Tylenol) 325 MG TABLET 2 TAB PO BID PRN PAIN (Reported) Apixaban (Eliquis) 5 MG TABLET 1 TAB PO BID BLOOD THINNER (Reported) Diltiazem HCl (Cardizem Cd) 180 MG CAP.ER.24H 1 CAP PO DAILY ATRIAL FIBRILLATION Divalproex Sodium (Divalproex Sodium ER) 500 MG TAB.ER.24H 3 TAB PO QPM MENTAL HEALTH (Reported) Gabapentin (Unknown Strength) CAPSULE (Unknown Dose) PO TID NERVE PAIN ( Reported) Methocarbamol (Robaxin) 500 MG TABLET 1 TAB PO TID PRN MUSCLE STRAIN Oxycodone HCl/Acetaminophen (Percocet 5-325 MG Tablet) 5 MG-325 MG TABLET 1 TAB PO BID PRN PAIN Pravastatin Sodium (Pravachol) 40 MG TABLET 1 TAB PO QHS CHOLESTEROL ( Reported) (ABDIRASHID PAINTER,NANNETTE) Past History Travel History Traveled to [place] past 21 day No Medical History Any Pertinent Medical History? see below for history Neurological: NONE EENT: NONE Cardiovascular: AFIB, hyperlipidemia, CARDIOVERSION X 3 HYPOTENSION Respiratory: NONE Gastrointestinal: NONE Hepatic: NONE Renal: NONE Musculoskeletal: disk herniation, R KNEE "LIGAMENTS, CARTLIDGE EVERYTHING" BULGING DISKS DDD Psychiatric: MOOD DISORDER PTSD Endocrine: hyperthyroidism Blood Disorders: NONE Cancer(s): NONE TRANSPORTER RADIOLOGY/Reproductive: NONE History of MRSA: No History of VRE: No History of CDIFF: No Surgical History Surgical History: CARDIOVERSION X 3 HERNIA SX DENTAL SX Psychosocial History Who do you live with Patient and family Services at Home None What is your primary language Latvian Tobacco Use: Current Daily Use Daily Tobacco Use Amount/Type: => 5 Cigarettes daily ETOH Use: occasional use Illicit Drug Use: denies illicit drug use Family History Family History, If Any: FATHER FH: lung cancer BROTHER FH: atrial fibrillation MOTHER FH: Alzheimers disease FH: throat cancer Hx Contributory? No (MACHELLE MALDONADO) Review of Systems Review of Systems Constitutional: Reports: no symptoms. Comments Review of systems: See HPI, All other systems negative. Constitutional, no chills fever or weight loss HEENT: No visual changes no sore throat no congestion Cardiovascular: No chest pain ,palpitation , orthopnea or ankle swelling Skin, no jaundice no rashes Respiratory: No dyspnea cough sputum or hemoptysis GI: No nausea no vomiting : No dysuria No hematuria Muscle skeletal: no back pain Neurologic: No numbness no confusion NO BALTAZAR Psych: No stress anxiety or depression,. Heme/endocrine: No bruising no bleeding no polyuria or polydipsia Immunology: No splenectomy or history of AIDS (MACHELLE MALDONADO) Physical Exam Physical Exam General Appearance: well developed/nourished, no apparent distress, alert, awake , comfortable Neck: supple, limited range of motion, muscle spasm, tenderness Comments: Well-developed well-nourished person in no acute distress HEENT: Pupils equally round and reactive to light and accommodation. Nose is atraumatic. Neck: Supple, no lymphadenopathy, tender to palpation over the cervical paraspinal muscles bilaterally as well as C6, C7. Limited range of motion with neck flexion, extension and lateral rotation. Back: Nontender Cardiovascular: IRRegular rate and rhythms no murmurs rubs or gallops, normal JVP Respiratory: Chest nontender. No respiratory distress.breath sounds clear to auscultation bilaterally Extremity: No edema, all range of motion of upper and lower extremities without difficulty or pain. Muscular strength is equal and symmetric bilaterally. Neuro: Alert oriented x3, motor sensory normal, cranial nerves II through XII grossly intact. Skin: No appreciable rash on exposed skin, skin is warm and dry. Psych: Mood and affect is normal, memory and judgment is normal. (LARS VEGA,MACHELLE) Progress Differential Diagnosis: CERVICAL FRACTURE, MUSCLE SPASM, HERNIATED DISC, COMPRESSION FRACTURE Plan of Care: Orders Procedure Date/time Status CT CERV SPINE WO IV CONTRAST 12/03 1827 Active Current Medications Sig/Sly Start time Last Medication Dose Stop Time Status Admin Oxycodone/ 1 TAB ONCE ONE 12/02 1829 UNVr Acetaminophen 12/02 1830 (Percocet) Diagnostic Imaging: Viewed by Me: CT Scan. Discussed w/RAD: CT Scan. Radiology Impression: PATIENT: SHAYNE PORTER PRESENT AGE: 56 PATIENT ACCOUNT NO: [id number] : 58 LOCATION: [facility] ORDERING PHYSICIAN: MACHELLE VEGA SERVICE DATE: 12/02/16 EXAM TYPE: CAT - CT CERV SPINE WO IV CONTRAST EXAMINATION: CT CERVICAL SPINE WITHOUT CONTRAST CLINICAL INFORMATION: Pain status post garage door falling on head. COMPARISON: None. TECHNIQUE: Contiguous helical images of the cervical spine were obtained without IV contrast. Multiplanar reconstructions were performed. FINDINGS: The cervical vertebra are in normal alignment. Vertebral body heights are well-preserved. There is disc space narrowing at C6-C7. Multilevel endplate osteophyte formation with mild facet arthropathy. There are no fractures. There is no prevertebral soft tissue swelling. The atlantoaxial and atlantooccipital articulations are intact. There is no cervical lymphadenopathy. The visualized base of the brain is unremarkable. Paraseptal emphysema seen at the lung apices. IMPRESSION: No evidence for acute injury to the cervical spine. Mild multilevel degenerative change. DICTATED BY: CRAIG HUDDLESTON MD DATE/TIME DICTATED:12/02 WHEEL CLEANER:ROLDAN DATE/TIME TRANSCRIBED:12/02/161837 (MACHELLE MALDONADO) Departure Departure Time of Disposition: 1854 Disposition: HOME OR SELF CARE Condition: Stable Clinical Impression Primary Impression: Cervical strain Qualifiers: Encounter type: initial encounter Qualified Code: S16.1XXA - Strain of muscle, fascia and tendon at neck level, initial encounter Secondary Impressions: Degenerative disk disease Qualifiers: Spinal region: unspecified cervical region Qualified Code: M50.30 - Other cervical disc degeneration, unspecified cervical region Referrals: ML PAINTER,LONA GASPAR (PCP/Family) Additional Instructions: Follow-up with your primary care physician call to make an appointment. Take muscle relaxer and pain medication as prescribed. Apply warm compresses to the area. Return for worsening symptoms or concerns. Departure Forms: Customer Survey General Discharge Information Prescriptions: Current Visit Scripts Methocarbamol (Robaxin) 1 TAB PO TID PRN MUSCLE STRAIN #10 TAB Oxycodone HCl/Acetaminophen (Percocet 5-325 MG Tablet) 1 TAB PO BID PRN PAIN #10 TAB (MACHELLE MALDONADO) PA/GRADUATE TEACHING ASSOCIATE Co-Sign Statement Statement: ED Attending supervision documentation- [] I saw and evaluated the patient. I have also reviewed all the pertinent lab results and diagnostic results. I agree with the findings and the plan of care as documented in the PA's/GRADUATE TEACHING ASSOCIATE's documentation. [X] I have reviewed the ED Record and agree with the PA's/GRADUATE TEACHING ASSOCIATE's documentation. [] Additions or exceptions (if any) to the PAs/GRADUATE TEACHING ASSOCIATE's note and plan are summarized below: [] (ABDIRASHID PAINTER,NANNETTE)
[2016-12-02 18:35] VITALS: BP 118/64
--- NOTE | 2016-12-02 18:45 | CT SCAN REPORT ---
EXAMINATION: CT CERVICAL SPINE WITHOUT CONTRAST CLINICAL INFORMATION: Pain status post garage door falling on head. COMPARISON: None. TECHNIQUE: Contiguous helical images of the cervical spine were obtained without IV contrast. Multiplanar reconstructions were performed. FINDINGS: The cervical vertebra are in normal alignment. Vertebral body heights are well-preserved. There is disc space narrowing at C6-C7. Multilevel endplate osteophyte formation with mild facet arthropathy. There are no fractures. There is no prevertebral soft tissue swelling. The atlantoaxial and atlantooccipital articulations are intact. There is no cervical lymphadenopathy. The visualized base of the brain is unremarkable. Paraseptal emphysema seen at the lung apices. IMPRESSION: No evidence for acute injury to the cervical spine. Mild multilevel degenerative change.
[2016-12-02] MEDS ORDERED: PERCOCET 5-3251 EACH PO (18:59)
[2016-12-02] MEDS ORDERED: ROBAXIN500 M1 PO (18:59)
== END 2016-12-02 19:13 ==
LOC: ERH 18:06
DX: S16.1XXA Strain of muscle, fascia and tendon at neck level, initial encounter (principal); M50.323 Other cervical disc degeneration at C6-C7 level; X50.9XXA Other and unspecified overexertion or strenuous movements or postures, initial encounter; Y93.89 Activity, other specified; Y92.9 Unspecified place or not applicable

== ENCOUNTER 2017-01-08 22:15 | Emergency (ER) | payer OTHER ==
[~2017-01-08] VITALS: Ht 175.3 cm; Wt 70.8 kg
[~2017-01-08 22:15] MED LIST changes: +ROBAXIN500 M1 PO
[2017-01-08 22:18] VITALS: BP 126/90
[2017-01-08] MEDS ORDERED: PERCOCET 5-3251 EACH PO (22:53)
--- NOTE | 2017-01-08 22:54 | ED NECK/BACK PAIN COMPLAINT ---
History of Present Illness General Chief Complaint: Low Back Pain/Injury Stated Complaint: C/O LOW BACK PAIN Source: patient, old records Exam Limitations: no limitations Vital Signs & Intake/Output Vital Signs & Intake/Output Vital Signs Date Time Temp Pulse Resp B/P B/P Pulse O2 O2 Flow FiO2 Mean Ox Delivery Rate 01/08 2218 98.2 110 18 126/90 98 Room Air Allergies Coded Allergies: tramadol (GAS, DIARRHEA, ABD PAIN, CLAMMY 12/02/16) ibuprofen (CAN'T ANTONIETA R/T BLOOD THINNERS 12/02/16) Reconcile Medications Acetaminophen (Tylenol) 325 MG TABLET 2 TAB PO BID PRN PAIN (Reported) Apixaban (Eliquis) 5 MG TABLET 1 TAB PO BID BLOOD THINNER (Reported) Diltiazem HCl (Cardizem Cd) 180 MG CAP.ER.24H 1 CAP PO DAILY ATRIAL FIBRILLATION Divalproex Sodium (Divalproex Sodium ER) 500 MG TAB.ER.24H 3 TAB PO QPM MENTAL HEALTH (Reported) Gabapentin (Unknown Strength) CAPSULE (Unknown Dose) PO TID NERVE PAIN ( Reported) Methocarbamol (Robaxin) 500 MG TABLET 1 TAB PO TID PRN MUSCLE STRAIN Oxycodone HCl/Acetaminophen (Percocet 5-325 MG Tablet) 5 MG-325 MG TABLET 1 TAB PO BID PRN pain Oxycodone HCl/Acetaminophen (Percocet 5-325 MG Tablet) 5 MG-325 MG TABLET 1 TAB PO BID PRN PAIN Pravastatin Sodium (Pravachol) 40 MG TABLET 1 TAB PO QHS CHOLESTEROL ( Reported) Triage Note: PT TO TRIAGE WITH C/O CHRONIC LOWER BACK PAIN 02/19 PT TOOK TYLENOL AND MOTRIN AT HOME WITH NO RELIEF. HX OF DISK HERNIATION. Triage Nurses Notes Reviewed? yes Onset: Gradual Duration: week(s): (1), constant Timing: recent history Quality/Severity: mild, moderate (aching) Location: paraspinous muscles Radiation: none Method of Injury: twisted Loss of Consciousness: no loss of consciousness Associated Symptoms: denies HPI: 56-year-old male presents to ER with history of A. fib on Coumadin, chronic back pain presents to ER complaining of a one-week history of progressively worsening exacerbation of his chronic lower back pain nonradiating. He states she's been lifting a lot at work he denies trauma or fall. He has been taking Tylenol Motrin without improvement noted all pain no urinary bowel incontinence. He denies any leg pain numbness or tingling. Pain is worse with change in position better at rest no other modifying factors or associated symptoms. (ADILSON SOUTH) Past History Travel History Traveled to [place] past 21 day No Medical History Any Pertinent Medical History? see below for history Neurological: NONE EENT: NONE Cardiovascular: AFIB, hyperlipidemia, CARDIOVERSION X 3 HYPOTENSION Respiratory: NONE Gastrointestinal: NONE Hepatic: NONE Renal: NONE Musculoskeletal: disk herniation, R KNEE "LIGAMENTS, CARTLIDGE EVERYTHING" BULGING DISKS DDD Psychiatric: MOOD DISORDER PTSD Endocrine: hyperthyroidism Blood Disorders: NONE Cancer(s): NONE TICKER WIRER/Reproductive: NONE History of MRSA: No History of VRE: No History of CDIFF: No Surgical History Surgical History: CARDIOVERSION X 3 HERNIA SX DENTAL SX Psychosocial History Who do you live with Patient and family Services at Home None What is your primary language Stateless Tobacco Use: Current Daily Use Daily Tobacco Use Amount/Type: => 5 Cigarettes daily Family History Family History, If Any: FATHER FH: lung cancer BROTHER FH: atrial fibrillation MOTHER FH: Alzheimers disease FH: throat cancer Hx Contributory? No (ADILOSN SOUTH) Review of Systems Review of Systems Constitutional: Reports: see HPI. All Other Systems: Reviewed and Negative Comments Review of systems: See HPI, All other systems negative. Constitutional, no chills no fever, no malaise HEENT: No visual changes no sore throat no congestion, Cardiovascular: No chest pain , no palpitation Skin: no rashes, no change in skin Respiratory: No dyspnea no cough no sputum GI: No nausea no vomiting, : No dysuria No hematuria, no frequency, no discharge Muscle skeletal: No joint pain, no joint swelling, back pain, no neck pain, Neurologic: No numbness no headache Psych: No stress Heme/endocrine: No bruising Immunology: No lymphadenopathy (ADILSON SOUTH) Physical Exam Physical Exam General Appearance: well developed/nourished, alert, awake Neck: normal inspection, supple Comments: Well-developed well-nourished person in no acute distress HEENT: Normal EENT exam; PERRL, EOMI, HEAD is atraumatic. moist mucous membranes. Neck: Supple, normal range of motion Back: Bilateral paralumbar muscle tenderness to palpation no midline tenderness no ecchymosis no CVA tenderness. Full range of motion Cardiovascular: Regular rate and rhythms no murmurs rubs Respiratory: No respiratory distress. Patient speaking in full complete sentences. Breath sounds clear to auscultation bilaterally: NO W/R/R Abdomen: Soft, nontender nondistended, no appreciable organomegaly. Normal bowel sounds. No rebound/guarding, No appreciable enlargement of the abdominal aorta, No ascites. Extremity: No edema, full range of motion of extremities, negative straight leg raise bilaterally Neuro: Alert oriented x3, motor sensory normal, There were no obvious focal neurologic abnormalities. Skin: No appreciable rash on exposed skin, skin is warm and dry. Psych: Mood and affect is normal, memory and judgment is normal. (ADILSON SOUTH) Progress Differential Diagnosis: cauda equina syn, herniated disc, myofascial strain, pyelo/UTI, sciatica, spinal cord inj, T/L spine injury, ureterolithiasis Plan of Care: Patient clinically looks well. Patient has no evidence of radiculopathy. No urinary bowel dysfunction. No numbness in the genital area. Strength intact. Gross sensation intact. Patient resting comfortably and in no apparent distress. Pain is worse with range of motion. Pain is reproducible IN back with no bruising or ecchymosis noted. . Patient is to follow-up with primary care doctor. May need MRI of the lower back at some point time. No concerns for cauda equina at this point time. I considered this diagnosis but patient does not have any symptoms consistent with cauda equina. Patient has no secondary causes of back pain. No cardiac, pulmonary, or abdominal complaints. No abdominal pain on exam. Cardiac pulmonary exam within normal limits. No rashes, afebrile, denies recent weight loss, dizziness, lightheadedness I discussed with the patient at length all of their results. I had an extensive conversation regarding need for close follow up with their primary care physician this week as well as return precautions. I answered all of their questions, they feel comfortable with the plan and follow-up care. I discussed with the patient/family the medications that they will receive. I gave them signs and symptoms that could indicate an adverse reaction. I have advised them to limit their activities until they can see how they respond to the medication. (ADILSON SOUTH) Departure Departure Time of Disposition: 2250 Disposition: HOME OR SELF CARE Condition: Stable Clinical Impression Primary Impression: Exacerbation of chronic back pain Referrals: ML PAINTER,LONA GASPAR (PCP/Family) Additional Instructions: Rest heating pads Tylenol Motrin for pain. Percocet for breakthrough pain use caution this is a narcotic highly addictive no driving or drinking alcohol while taking. This medication has Tylenol in it do not take any extra over-the- counter Tylenol when taking the Percocet follow up with her primary care physician next week Departure Forms: Customer Survey General Discharge Information Prescriptions: Current Visit Scripts Oxycodone HCl/Acetaminophen (Percocet 5-325 MG Tablet) 1 TAB PO BID PRN pain #10 TAB (ADILSON SOUTH) PA/CATEGORY MANAGER Co-Sign Statement Statement: ED Attending supervision documentation- I saw and evaluated the patient. I have also reviewed all the pertinent lab results and diagnostic results. I agree with the findings and the plan of care as documented in the PA's/CATEGORY MANAGER's documentation. x I have reviewed the ED Record and agree with the PA's/CATEGORY MANAGER's documentation. [] Additions or exceptions (if any) to the PAs/CATEGORY MANAGER's note and plan are summarized below: [] (KORY PAINTER,PETRONA)
== END 2017-01-08 23:01 ==
LOC: ERH 22:15
DX: G89.29 Other chronic pain (principal); M54.5 Low back pain